=== PATIENT | male | born 1960 | race African-American/Black ===

== ENCOUNTER 2016-06-09 08:14 | Day surgery (SDC) | payer OTHER ==
[2016-06-08 15:25] VITALS: BMI 26.6
[2016-06-09 10:48] VITALS: TEMP 97.4
[2016-06-09 11:54] VITALS: BP 102/59; PULSE 77
--- NOTE | 2016-06-12 12:43 | PATH ---
Surgical Pathology Report Patient Name: KASHIF HEREDIA [facility]. Rec. #: [id number] /Age/Gender: 1960 (Age: 56) / M Account: [id number] Location: [facility]-ENDOSCOPY Taken: 06/09/2016 Received: 06/09/2016 Reported: 06/12/2016 Physicians: Pasquale Solomon M.D. Specimen(s) Received RECTAL POLYP Clinical History Colon screening Redundant colon, chronic constipation, rectal polyp, grade 2 hemorrhoids Final Diagnosis RECTUM, POLYP, POLYPECTOMY: INFLAMED AND FOCALLY ULCERATED HYPERPLASTIC POLYP. Electronically Signed Huy Thomson M.D. Gross Description Received in formalin, labeled "rectal polyp" is a ayala, polypoid portion of soft tissue measuring 0.4 cm in greatest dimension. The specimen is submitted in toto in one cassette. 06/09/201606/09/2016
== END 2016-06-09 11:54 | disposition home or self-care (01) ==
LOC: JASU-ENDO 08:14
PROVIDERS: ATTEND Internal Medicine Gastroenterology
PROC: 0DBP8ZX Excision of Rectum, Via Natural or Artificial Opening Endoscopic, Diagnostic (ICD-10-PCS; principal; 2016-06-09 09:30)
DX: Z12.11 Encounter for screening for malignant neoplasm of colon (principal); K64.8 Other hemorrhoids; K63.89 Other specified diseases of intestine; K62.1 Rectal polyp
CPT/HCPCS: 88305-TC